=== PATIENT | female | born 1995 | race Caucasian/White ===

== ENCOUNTER 2025-03-19 23:16 | Emergency (ER) | payer BC, SELFPAY ==
[2025-03-19 23:17] VITALS: BMI 20.9
[2025-03-19 23:18] VITALS: BP 124/80
[2025-03-20 00:52] VITALS: BP 133/84
--- NOTE | 2025-03-20 02:21 | ED.GENMED ---
History of Present Illness
<Anita Palacios PA-C - Last Filed: 03/20/25 08:49>
General
Chief Complaint: Eye Problems
Source: patient
Exam Limitations: none
Time Seen by Provider: 03/20/25 02:02
Nursing documentation reviewed up to this point in time: agreed with
History of Present Illness
History of Present Illness:
29-year-old female with a history of anxiety and depression who presents emergency department today with concerns of irritation in her eyes and trouble writing her contacts. Patient reports that she just started using her contacts around a week
ago. She saw an telephone services sales representative as outpatient. Patient reports that she changes her contacts daily. Patient reports that when she got home from work today, she felt very tired and fell asleep. When she woke up from her nap, she went to go take her
contacts out. When she tried to take them out, they would not come out. Patient reports that her and her family rinsed thoroughly with saline, tried physically removing them with their fingers, and tried multiple methods and reports that they
would not come out. Patient questions whether or not there is still they are considering the vigorous methods today did try to remove the lenses. Patient reports that she is unsure of the 1 in her right eye still there but believes that the 1 in
the left eye is still present. Patient denies any eye pain, visual changes, visual loss, blurry vision, headaches, nausea, chest pain, shortness of breath.
Review of Systems
<Anita Palacios PA-C - Last Filed: 03/20/25 08:49>
Review of Systems
All Other Systems: ROS reviewed and negative except as documented in HPI and ROS
Phy Exam
<Anita Palacios PA-C - Last Filed: 03/20/25 08:49>
Physical Exam
Physical Exam:
General: Patient is well appearing and in no acute distress; non-toxic
Skin: Warm and dry, no rashes or lesions
Head: Normocephalic, atraumatic
Eyes: Sclera non-icteric. EOMs intact. Mild scleral erythema bilaterally.
Cardiac: Regular rate
Pulm: Normal respiratory effort
Neuro: CN II-XII intact, no focal neurologic deficits.
Psychiatric: Appropriate mood and affect.
Course
<Anita Palacios PA-C - Last Filed: 03/20/25 08:49>
Vital Signs
Initial and Last Documented VS:
Initial Vital Signs
Temp Pulse Resp BP Pulse Ox
98 F 80 16 124/80 98
03/19/25 23:18 03/19/25 23:18 03/19/25 23:18 03/19/25 23:18 03/19/25 23:18
Last Documented Vital Signs
Temp Pulse Resp BP Pulse Ox
98.3 F 80 16 133/84 98
03/20/25 00:00 03/19/25 23:18 03/19/25 23:18 03/20/25 00:52 03/20/25 02:22
<Johnny Farris DO - Last Filed: 03/20/25 02:49>
Vital Signs
Initial and Last Documented VS:
Initial Vital Signs
Temp Pulse Resp BP Pulse Ox
98 F 80 16 124/80 98
03/19/25 23:18 03/19/25 23:18 03/19/25 23:18 03/19/25 23:18 03/19/25 23:18
Last Documented Vital Signs
Temp Pulse Resp BP Pulse Ox
98.3 F 80 16 133/84 98
03/20/25 00:00 03/19/25 23:18 03/19/25 23:18 03/20/25 00:52 03/20/25 02:22
Procedures
<Anita Palacios PA-C - Last Filed: 03/20/25 08:49>
Eye Procedures
Anesthesia: other (Tetracaine)
Conjuctival foreign body removal was superficial- removed by: irrigation
Removal of corneal foreign body with: direct visualization
Foreign body removal was: incomplete
After removal was there a corneal abrasion?: no corneal damage noted
<Anita Palacios PA-C - Last Filed: 03/20/25 08:49>
MDM/Problems Addressed
Differential Diagnosis Includes:
Contact lens removal
MDM/Problems Addressed:
29-year-old female with a history of anxiety and depression who presents emergency department today with concerns of irritation in her eyes and trouble removing her contacts. On physical exam she is well-appearing in no acute distress. She is
unsure if she was actually able to remove them or not considering the multiple methods she did try. I did examine patient is not able to visibly identify any contact. Did irrigate patient's eye and did not see any contact lenses. I did notify my
attending who also did a thorough eye exam and were not able to identify any contact lens. We recommend the patient follow-up with her telephone services sales representative. Patient is considering switching to glasses. Patient stable for discharge. Return precautions
discussed.
<Anita Palacios PA-C - Last Filed: 03/20/25 08:49>
*Pulse Oximetry
SaO2: 98
Oxygen Mode of Delivery: Room air
Patient hypoxic: no
*Critical Care Note
Total Time (30-74mins, 75-104mins- exclusive of procedures): Not Applicable
ED Attending Note
<Anita Palacios PA-C - Last Filed: 03/20/25 08:49>
-
Portions of this chart may have been created with voice recognition software.� Occasional wrong word or��sound alike� substitutions may have occurred due to the inherent limitations of voice recognition software.
<Johnny Farris DO - Last Filed: 03/20/25 02:49>
ED Attending Note
Patient seen and examined by attending physician: Yes
I performed the substantive portion of visit, reviewed & personally made and approve the management plan that is documented in note by myself or CORWIN.: Yes
ED Attending Note:
I evaluated the patient at bedside. I used tetracaine bilaterally, everted both upper lids, massaged the globe irrigated the sclera/cornea, no foreign body identified. Mild conjunctival injection noted.
Discharge Plan
Departure
Patient Disposition: Home (Routine Discharge)
Date of Disposition: 03/20/25
Time of Disposition: 02:49
Patient with high blood pressure during this ER visit?: Yes
Condition: Good
Discharge Problem:
Irritation of both eyes, Contact lens intolerance
Instructions: Foreign Body in Eye (DC), BLOOD PRESSURE
Referrals:
Giuseppe Ramirez CRNP [Family Provider]
Activity Restrictions/Additional Instructions:
Please follow up with your steel tester/telephone services sales representative.
PLEASE RETURN TO THE ER SHOULD YOU DEVELOP EYE PAIN, VISUAL LOSS, HEADACHES/NECK PAIN, NAUSEA OR VOMITING, OR ANY OTHER SIGNS OR SYMPTOMS WORRISOME TO YOU.
Interventions
Interventions:
*Risk Screen - Suicide Last Done: 03/19/25 23:18
*General Assessment Last Done: 03/20/25 00:55
*Neglect/Abuse Screening Last Done: 03/19/25 23:18
*ED- Fall Risk Assessment Last Done: 03/20/25 00:56
*ED COVID-19 Vaccine History Last Done: 03/20/25 00:57
*Nursing Disposition Last Done: 03/20/25 03:00
Discharge Date and Time
Discharge Date/Time: 03/20/25 03:00
Print Language: ESTONIAN
== END 2025-03-20 03:00 | disposition home or self-care (01) ==
LOC: EMR 23:16
PROVIDERS: EMERGENCY PHYSICIAN Emergency Medicine; FAMILY PHYSICIAN Registered Nurse Medical-Surgical
DX: H18.823 Corneal disorder due to contact lens, bilateral (principal); T15.02XA Foreign body in cornea, left eye, initial encounter; T15.01XA Foreign body in cornea, right eye, initial encounter; W44.E9XA Other non-magnetic metal objects entering into or through a natural orifice, initial encounter
CPT/HCPCS: 99283

== ENCOUNTER 2025-04-06 16:20 | Emergency (ER) | payer BC, SELFPAY ==
[2025-04-06] MEDS: ZYPREXA 10 MG IM (16:52)
[2025-04-06 17:00] VITALS: BP 147/93
[2025-04-06] MEDS: ATIVAN 2 MG IM (17:07)
--- NOTE | 2025-04-06 17:11 | ED.GENMED ---
History of Present Illness
<Hemant Felipe PA-C - Last Filed: 04/06/25 22:59>
General
Chief Complaint: Crisis Evaluation
Source: patient, family and ambulance crew
Time Seen by Provider: 04/06/25 16:21
History of Present Illness
History of Present Illness:
29-year-old female with past medical history of anxiety and depression, schizophrenia presenting to the emergency department with EMS from her sober living facility for reported abnormal behavior, mother reportedly filing a 302. Patient unable to
give me any further history. She did state that earlier today she brought her car [facility] '[facility]normal things were happening'. Her sober living house designer came to pick her up and brought her back to the living facility,
patient states that is when she was brought to the emergency department. Of note, upon arrival to the emergency department and getting patient off of the stretcher she ran out of the crisis room and out of the emergency department and outside.
Patient was with security officers and ultimately needed to be handcuffed by police and brought back into the emergency room. Patient not redirectable, continuously yelling, flight of ideas. She was given 10 mg Zyprexa intramuscularly, was
slightly more calm but still not cooperative. Patient started continuously yelling again so an additional 2 mg of Ativan were given and patient was placed in 4 point locked restraints
Past History
<Hemant Felipe PA-C - Last Filed: 04/06/25 22:59>
Past History
ED Past Medical History: Psychiatric
ED Past Surgical History: None
Social History
Tobacco: Non-smoker
Alcohol: Former
Drug: Former user
Personal: Single
Living: other (Sober living house)
Review of Systems
<Hemant Felipe PA-C - Last Filed: 04/06/25 22:59>
Review of Systems
All Other Systems: ROS reviewed and negative except as documented in HPI and ROS
Phy Exam
<Hmeant Felipe PA-C - Last Filed: 04/06/25 22:59>
Physical Exam
Physical Exam:
GENERAL: Alert , flight of ideas, constantly yelling, unable to redirect
EYE: conjunctiva clear
Head: Normocephalic atraumatic
NECK: Supple,
ENT: mmm.
LUNGS: no acute respiratory distress
NEUROLOGICAL: Alert and oriented to self but not place nor time
SKIN: Warm and dry, skin intact.
MUSCULOSKELETAL: well perfused.
PSYCH: Very agitated affect
Scores
<Hemant Felipe PA-C - Last Filed: 04/06/25 22:59>
Heart Failure Risk
Heart Failure Risk Score: Not Applicable
Heart Score for Chest Pain Patients
STEMI patient?: Not applicable
Withdrawal Assessment of Alcohol
Withdrawal Assessment Completed?: Not applicable
Course
<Hemant Felipe PA-C - Last Filed: 04/06/25 22:59>
Orders/Labs/Results
Orders:
Orders
04/06/25 16:47
Olanzapine [Zyprexa] 10 mg IM NOW STA
04/06/25 16:50
Sterile Water [Sterile Water For Injection] 10 ml .ROUTE .STK-MED ONE
04/06/25 17:03
Lorazepam [Ativan] 2 mg IM NOW STA
04/06/25 17:10
1:1 Observation - Suicide/ Violent Behavior As Directed
04/06/25 17:20
Crisis Consult Urgent
Reason for Consult: 302
Drug Screen, Urine [Urine Drug Abuse Screen] Urgent
Test Result ONCE
04/06/25 17:45
Complete Blood Count/With Diff Urgent
Comprehensive Metabolic Panel Urgent
HCG, Serum Qualitative Screen Urgent
Abnormal Lab Results
04/06/25
17:45
Carbon Dioxide 19 L mmol/L
(22-30)
Glucose 129 H mg/dl
(70-99)
04/06/25 17:45
Vital Signs
Initial and Last Documented VS:
Initial Vital Signs
Temp Pulse Resp BP Pulse Ox
98.5 F 106 22 147/93 95
04/06/25 17:00 04/06/25 17:00 04/06/25 17:00 04/06/25 17:00 04/06/25 17:00
Last Documented Vital Signs
Temp Pulse Resp BP Pulse Ox
98.5 F 106 17 147/93 95
04/06/25 17:00 04/06/25 17:00 04/06/25 19:07 04/06/25 17:00 04/06/25 17:00
<Aaron Mcelroy, DO - Last Filed: 04/06/25 17:17>
Orders/Labs/Results
Orders:
Orders
04/06/25 16:47
Olanzapine [Zyprexa] 10 mg IM NOW STA
04/06/25 16:50
Sterile Water [Sterile Water For Injection] 10 ml .ROUTE .STK-MED ONE
04/06/25 17:03
Lorazepam [Ativan] 2 mg IM NOW STA
04/06/25 17:10
1:1 Observation - Suicide/ Violent Behavior As Directed
04/06/25 17:20
Crisis Consult Urgent
Reason for Consult: 302
Drug Screen, Urine [Urine Drug Abuse Screen] Urgent
Test Result ONCE
04/06/25 17:45
Complete Blood Count/With Diff Urgent
Comprehensive Metabolic Panel Urgent
HCG, Serum Qualitative Screen Urgent
Abnormal Lab Results
04/06/25
17:45
Carbon Dioxide 19 L mmol/L
(22-30)
Glucose 129 H mg/dl
(70-99)
04/06/25 17:45
Vital Signs
Initial and Last Documented VS:
Initial Vital Signs
Temp Pulse Resp BP Pulse Ox
98.5 F 106 22 147/93 95
04/06/25 17:00 04/06/25 17:00 04/06/25 17:00 04/06/25 17:00 04/06/25 17:00
Last Documented Vital Signs
Temp Pulse Resp BP Pulse Ox
98.5 F 106 17 147/93 95
04/06/25 17:00 04/06/25 17:00 04/06/25 19:07 04/06/25 17:00 04/06/25 17:00
<Hemant Felipe PA-C - Last Filed: 04/06/25 22:59>
MDM/Problems Addressed
Differential Diagnosis Includes:
Psychosis
Exacerbation of chronic schizophrenia
Medication side effects
Possible infectious etiology
MDM/Problems Addressed:
29-year-old female presenting to the emergency department after mother filing a 302. Please see above for further details. Crisis consult and telepsych consult ordered.
Chronic conditions affecting care: Psychiatric illness
Acute Exacerbation and/or Progression of Chronic Illness: Psychiatric illness
<Hemant Felipe PA-C - Last Filed: 04/06/25 22:59>
*Pulse Oximetry
SaO2: 95
Oxygen Mode of Delivery: Room air
Patient hypoxic: no
*Critical Care Note
Total Time (30-74mins, 75-104mins- exclusive of procedures): 30
comment:
Critical care statement: A total of 30 minutes of critical care time was provided for this patient. This includes management of unstable vital signs, evaluation of the patient at bedside, reviewing the patient's pertinent medical records, discussion
with consultants, review of old EKGs and review of pertinent medical records. This time with separate from time utilized to perform the aforementioned documented procedures
<Hemant Felipe PA-C - Last Filed: 04/06/25 22:59>
Comment
Comment:
April 06, 2025, 5:47 PM: While still in the emergency department and discussion with police I was able to confirm the patient's history that she was at the [facility] dealership today, the [facility] house designer reportedly did come and pick the patient
up from the dealership and brought her back to the sob living facility. There patient was reportedly having significant outbursts and there was concern about medications that the patient were taking. EMS was dispatched as well as police due to
concern for patient being violent. Remainder of history as above once patient was in the emergency department
Patient Management
Discussion with other providers: Other
Escalation/DeEscalation of care consider admission/obs:
Patient seen by telepsychiatry, 302 was upheld. Waiting inpatient psych placement
ED Attending Note
<Hemant Felipe PA-C - Last Filed: 04/06/25 22:59>
-
Portions of this chart may have been created with voice recognition software.� Occasional wrong word or��sound alike� substitutions may have occurred due to the inherent limitations of voice recognition software.
<Aaron Mcelroy DO - Last Filed: 04/06/25 17:17>
ED Attending Note
Patient seen and examined by attending physician: Yes
I performed the substantive portion of visit, reviewed & personally made and approve the management plan that is documented in note by myself or CORWIN.: Yes
ED Attending Note:
Seen with KULDIP examined independently acutely manic 29-year-old, attempted to elope, chemically and physical restraint for her and staff safety threat to be completed she will require inpatient psychiatric care after being medically cleared
Discharge Plan
Departure
Patient Disposition: Psych Facility
Date of Disposition: 04/06/25
Time of Disposition: 22:19
Patient with high blood pressure during this ER visit?: Yes
Discharge Problem:
Schizophrenia
Referrals:
Giuseppe Ramirez CRNP [Family Provider]
Interventions
Interventions:
*Risk Screen - Suicide Last Done: 04/06/25 16:24
*General Assessment Last Done: 04/06/25 16:24
*Neglect/Abuse Screening Last Done: 04/06/25 16:24
*ED- Fall Risk Assessment Last Done: 04/06/25 17:46
*ED COVID-19 Vaccine History Last Done: 04/06/25 17:46
ED-Psychological Assessment Last Done: 04/06/25 17:46
Discharge Date and Time
Print Language: HEBREW
[2025-04-06 18:31] LABS: HCG, Serum Qualitative Screen Negative
[2025-04-06 18:34] LABS: ALT (SGPT) 24 U/L (0-35); AST (SGOT) 30 U/L (14-36); Albumin 4.6 g/dl (3.5-5.0); Alkaline Phosphatase 58 U/L (38-126); Blood Urea Nitrogen 16 mg/dl (7-17); Calcium 9.4 mg/dl (8.4-10.2); Carbon Dioxide 19 mmol/L (22-30); Chloride 106 mmol/L (98-107); Glucose 129 mg/dl (70-99); Potassium 4.0 mmol/L (3.5-5.1); Sodium 136 mmol/L (135-145); Total Protein 7.2 g/dl (6.3-8.2); eGFR > 60.00
[2025-04-06 23:02] LABS: Hematocrit 39.2 % (37.0-47.0); Hemoglobin 13.9 g/dL (12.0-16.0); Mean Corp Hgb Conc. 35.5 g/dL (33.0-37.0); Mean Corpuscular Volume 89.9 fL (81.0-99.0); Nucleated Red Blood Cells % 0 %; Platelet Count 352 10^3/uL (130-400); Red Cell Dist. Width 11.8 % (11.5-14.5)
[2025-04-07 02:09] VITALS: BP 140/98
== END 2025-04-07 10:18 ==
LOC: EMR 16:20
PROVIDERS: Physician Assistant Medical; EMERGENCY PHYSICIAN Emergency Medicine; FAMILY PHYSICIAN Registered Nurse Medical-Surgical
DX: F20.9 Schizophrenia, unspecified (principal); R45.1 Restlessness and agitation; R03.0 Elevated blood-pressure reading, without diagnosis of hypertension; F32.A Depression, unspecified; F41.9 Anxiety disorder, unspecified; Z91.013 Allergy to seafood
CPT/HCPCS: 99291; 96372 ×2; 80053; 80306; 80307; 84703; 85025; J2358